=== PATIENT | female | born 1985 | race Caucasian/White ===

== ENCOUNTER 2019-09-12 14:36 | Outpatient (CLI) | payer BC ==
--- NOTE | 2019-09-12 18:06 | MRI ---
MRI LUMBAR SPINE WITHOUT CONTRAST: 09/12/19 INDICATIONS: Sciatica. Low back pain. FINDINGS: Lumbar vertebrae maintain normal height and alignment. The disc spaces are normally maintained and ex hibit normal hydration with high T2 signal. Vertebral body signal is normal. No disc abnormality seen at L1-2, L2-3, L3-4 and L4-5 levels. No central canal or foraminal stenosis at any of these levels. At L5-S1, there is annular fissure with a tiny disc protrusion paracentrally to the right associated with this fissure. This does not significantly impinge on the thecal sac. There is no central canal o r foraminal stenosis. IMPRESSION: At L5-S1, there is an annular fissure with a tiny protrusion paracentrally to the right. No significa nt impingement on the thecal sac. No central canal or foraminal stenosis. POS: [facility]
== END 2019-09-12 14:37 | disposition home or self-care (01) ==
LOC: SCSMRI 14:36
DX: M54.32 Sciatica, left side (principal); M51.27 Other intervertebral disc displacement, lumbosacral region; G95.89 Other specified diseases of spinal cord
CPT/HCPCS: 72148

== ENCOUNTER 2024-03-28 14:46 | Outpatient (CLI) | payer BC | END 2024-03-28 14:47 | disposition home or self-care (01) | LOC: BICMAMMO 14:46 | PROVIDERS: ATTEND Physician Assistant | DX: R92.8 Other abnormal and inconclusive findings on diagnostic imaging of breast (principal); N64.89 Other specified disorders of breast | CPT/HCPCS: G0279 ==